=== PATIENT | female | born 1965 | race Caucasian/White ===

== ENCOUNTER → 2017-09-04 | Outpatient (CLI) | payer BC | END | disposition home or self-care (01) | LOC: CFH 14:12 | PROVIDERS: ATTEND Nurse Practitioner Family | DX: J20.9 Acute bronchitis, unspecified (principal) | CPT/HCPCS: 71046 ==

== ENCOUNTER 2019-04-16 15:12 | Emergency (ER) | payer BC, MEDICARE ==
[~2019-04-16] VITALS: Ht 165.1 cm; Wt 74.2 kg
[2019-04-16 15:39] VITALS: BP 137/87
== END 2019-04-16 18:18 | disposition home or self-care (01) ==
LOC: ED 18:05
DX: S01.511A Laceration without foreign body of lip, initial encounter (principal); W54.0XXA Bitten by dog, initial encounter; Y93.89 Activity, other specified; Y92.009 Unspecified place in unspecified non-institutional (private) residence as the place of occurrence of the external cause; Y99.8 Other external cause status
CPT/HCPCS: 40650; 99284; J3490